=== PATIENT | female | born 1985 ===

== ENCOUNTER 2024-08-02 14:15 | Outpatient (AMB) | payer SELFPAY ==
--- NOTE | 2024-08-02 14:29 | HO.SPINEOV ---
Vital Signs 08/02/24 14:30 Height 5 ft 6 in Weight 400 lb 2 oz BMI 64.6 Intake Visit Reasons: Low back pain Intake Note: Ms. Mcbride is here today c/o Low back pain difficulty walking. Red Lead Burner Required: No Physical Exam Vital Signs: BMI result Body Mass Index 64.6 Assessment & Plan Assessment & Plan (1) Synovial cyst of lumbar spine: Code(s): M71.38 - Other bursal cyst, other site Category: Medical (2) Lumbar stenosis with neurogenic claudication: Code(s): M48.062 - Spinal stenosis, lumbar region with neurogenic claudication Category: Medical (3) Acquired spondylolisthesis of lumbosacral region: Code(s): M43.17 - Spondylolisthesis, lumbosacral region Category: Medical Plan DearColleague on 08/02/2024 I saw for a 2nd opinion Daphne Mcbride with a chief complaint of severe low back pain radiating down predominantly her left leg. HPI: this 39-year-old female developed symptoms of back pain and bilateral leg pain with the left side is more affected than the right side in 2022. Since then her symptoms have progressed to a situation where she is hardly able to walk or stand anymore due to the back pain and bilateral leg symptoms. imaging reviewed a large synovial cyst L3-4 causing left L4 nerve root compression and central stenosis. In addition, hyperintensity of the predominantly left L4-5 facet joint was seen as a sign of instability. X-rays confirmed instability with a spondylolisthesis at the L3-4 level. initially, it was tried to puncture the cyst, which gave her only temporary relief. She has visited many surgeons but it seems that they denied her surgery due to her morbidly obesity. The symptoms are debilitating. 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 She comes to see to explore if a minimally invasive technique is available to address her symptoms. She can not take weight reduction medications due to Crohn's disease for which he takes in 1 time infusion with immunosuppressant every 7 weeks. The following conservative treatment options were tried without success antiinflammatories, tylenol, physician guided home exercise plan, cortisone shots PMH: Anxiety, obesity, bronchitis. Medications: Remicade, naproxen, vitamin-D and calcium, pantoprazole, gabapentin 600 mg 3 times a day, Lexapro, tramadol p.r.n., trazodone Allergies: codeine Social history: lives with a partner. Nonsmoker. Physical Exam: Pleasant female. Height 5 ft 6, weight 400 lb. On exam, this pain on palpation of the lumbar spine. Flexion-extension is painful. Straight leg raise produces pain down her left leg. Motor and sensory exam is intact. Radiological Studies: MRI done at [facility] on 05/13/2023 shows a large synovial cyst L3-4 causing left L4 nerve root compression and central stenosis. In addition, hyperintensity of the predominantly left L4-5 facet joint was seen as a sign of instability. X-rays confirmed instability with a spondylolisthesis at the L3-4 level. Impression/Plan: This patient is suffering from severe low back pain and neurogenic claudication due to L3-4 instability with the formation of a left synovial cyst. I propose to do an oblique lumbar interbody fusion L3-4 to reduce the spondylolisthesis and to indirectly decompress the spinal canal and reduce the size of the cyst. An alternative treatment would be to do a trans Kambin fusion L3-4 if I can not perform the oblique lumbar interbody fusion due to for example too many adhesions from the bowel was from her Crohn's disease. To plan for the surgery the following requirements are needed. 1st, I would like to repeat the MRI of the lumbar spine to make sure that the abnormalities are still present. Secondly, an approval for surgery is needed by her out of state insurance. The oblique lumbar interbody fusion has the following CPT codes: 32690, 35308, 75370, 66721, 49544 ( The transkambin fusion would add 61780 to the other codes). if approved, then we will schedule surgical date three weeks following her IV infusion. Finally, we will do a trial with x-rays before we put her to sleep for the procedure to make sure that fluoroscopy is able to penetrate sufficiently to show the anatomy. Thank you for allowing me to participate in your patients care. total time spent was 50 minutes in counseling ,coordination of plan, personal review of imaging, surgical decision making and subsequent plan Tayo Galindo MD, PhD Spine Fellowship Trained Neurosurgeon Director, [facility] Orders: Orders MR lumbar spine wo con Today M43.17 - Spondylolisthesis, lumbosacral region, M48.062 - Spinal stenosis, lumbar region with neurogenic claudication, M71.38 - Other bursal cyst, other site Coding Level of Care Code New Pt Level 4 (51604) Diagnoses Synovial cyst of lumbar spine M71.38 Lumbar stenosis with neurogenic claudication M48.062 Acquired spondylolisthesis of lumbosacral region M43.17
[2024-08-02 14:30] VITALS: BMI 64.6
--- OUTSIDE RECORDS SUMMARY | 2024-08-02 16:26 | XMS_ITS | Patient Health Record ---
Author Organization [facility] Rajinder ramirez Billing Info Address [address] [place] [address] Care Team Providers Care Shorts Sifter Name Role Phone Vicenta Infante Primary Care Provider MAGGIE Costa [phone] Allergies Allergen (clinical drug ingredient) Drug/Non Drug Allergy documented on EMR Reaction Allergy Type Onset Date Status codeine Codeine chest pain Drug Allergy Active Reason For Referral No Information Medications Medication SIG (Take, Route, Frequency, Duration) Notes Start Date End Date Status Naproxen Sodium 550 MG Oral for 30 Days Active Oxycodone-Acetaminophen 5-325 MG TAKE 1 TABLET BY MOUTH EVERY 6 HOURS FOR 5 DAYS NEEDED Oral for 5 days Active Alprazolam 1 MG Oral for 15 Days Active Escitalopram Oxalate 20 MG Oral for 90 Days Active Albuterol Sulfate HFA 108 (90 Base) MCG/ACT 1 puff as needed Inhalation every 4 hrs Active Gabapentin 600 MG 1 tablet Oral TID fo r 30 days Active Loratadine 10 MG 1 tablet Orally Once a day Active Cholecalciferol 50 MCG (2000 UT) 1 tablet Orally Once a day Active Remicade 100 MG as directed Intravenous Active Clobetasol Propionate 0.05 % External for 15 Days Active Tizanidine HCl 4 MG Oral for 20 Days Active Trazodone HCl 50 MG Oral for 30 Days Active Social History Tobacco Use: Social History Observation Description Date Details (start date - stop date) Never Smoker NA - NA Tobacco Status: Question Answer Notes Patient is a never smoker Vital Signs Heart Rate 100 /min 10/12/2023 Temperature 97.5 degrees Fahrenheit 10/12/2023 Blood pressure diastolic 88 mm Hg 10/12/2023 Oximetry 97 10/12/2023 Height 66 in 10/12/2023 Blood pressure systolic 146 mm Hg 10/12/2023 Encounters Encounter Location Date Provider Diagnosis [id number] [facility] [address] [place], [place] [id number] 10/12/2023 MAGGIE PALLATRONI Lumbar radicular pain M54.16 Assessments Encounter Date Diagnosis (ICD Code) Assessment Notes Treatment Notes Treatment Clinical Notes Section Notes 10/12/2023 Lumbar radicular pain (ICD-10 - M54.16) This is a very n ice 38-year-old woman with a very subtle spondylolisthesis that you actually see better on her flexion-extension films at L3-4 with a left-sided synovial cyst. Were you to operate on this she would need to be fused. She has instability already that is what has caused the cyst. Doing an L3-4 decompression and fusion on this woman at this point with these fairly subtle findings would likely fail. It would be high risk due to her size she is obese. It would be high risk down the road given her young age most likely resulting in adjacent segment disease for the remainder of her life leading to other problems and most likely more surgery. I told her today in no uncertain terms that her back is like this most likely because of her weight. I think would be in her best interests to find medical help for weight loss: That will provide her the best chance of dealing with this without surgery as surgery is risky and will produce equivocal results in the short term probably negative results in the senior care. I told her that the reason this is happening is because she is caring too much weight on her frame, our bodies were never meant to handle this much weight and that is certainly a major component to why her back is breaking down early. I have instructed her to consider what I have told her. In the interim she can follow up with Dr. Stiles for further pain management. Plan Of Treatment Pending Test Test Name Order Date NE- ELECTROMYOGRAM (EMG) (MTOE) () (PRHP -EMG) 05/17/2023 XR- LUMBAR SPINE BENDING ONLY (07283) (P RHP-SPLUMBBO) 05/17/2023 Insurance Providers Payer Name Payer Address Payer Phone Subscriber Number Group Number Insured Name Patient Relationship to Insured Coverage Start Date Coverage End Date [facility] [employer] [address]Z[place] [address] [place], [place] [id number] Reed, Daphne Self - patient is the insured 3 Medical (General) History Medical History History ICD Code Crohn's disease Psoriasis Wheezing Generalized anxiety disorder Asthma - mild persistent Neck pain limbal/vernal keratoconjunctivitis Restricted Airway Disease Surgical History Surgery Date(Month/Year) tonsillectomy and adenoidectomy
--- OUTSIDE RECORDS SUMMARY | 2024-08-02 16:26 | XMS_ITS ---
Author Organization [facility] Address [address] [place] [address] Care Team Providers Care Manuscript Editor Name Role Phone Vicenta Hutchnison Primary Care Provider REASON FOR VISIT RE:RE:out of network referral [facility] Encounters Encounter Location Date Provider [facility] [address] [place] [address] 07/03/2024 Vicenta Hutchinson Plan Of Treatment No Information Progress Notes * Guero MCBRIDEIrineoOB:1985 ( 39 yo F)Acc No.[id number]:07/03/2024 Patient:?Daphne MCBRIDE :1985???Age:39 Y???Sex:Female Address:[address] [place] [address] * true * Date:? Generated for Jacques avina/Sarmad/eTransmitting on:?08/02/2024 04:26 PM EST
--- OUTSIDE RECORDS SUMMARY | 2024-08-02 16:26 | XMS_ITS | Encounter Summary ---
Author Organization [facility] Address [phone] Count includes the [facility] [place] [address] Care Team Providers Care Regional Owner Operator Truck Driver Name Role Phone Vicenta Hutchinson MEDICAL HOSPITAL SALES Primary Care Provider [phone] Vicenta Hutchinson MEDICAL HOSPITAL SALES Primary Care Provider [phone] Encounter Details Date Type Department Care Team (Late st Contact Info) Description 03/16/2018 Procedure Pass [facility] MR Imaging, Felix [address] [place] [address] Social History Tobacco Use Types Packs/Day Years Used Date Smoking Tobacco: Never Smokeless Tobacco: Never Alcohol Use Standard Drinks/Week Comments Yes 0 (1 standard drink = 0.6 oz pur e alcohol) Sex and Gender Information Value Date Recorded Sex Assigned at Not on file Gender Identity Not on file Sexual Orientation Not on file documented as of this encounter Plan of Treatment Upcoming Encounters Date Type Department Care Team (Late st Contact Info) Description 09/16/2024 8:40 AM EDT Telemedicine [facility] Crohns and Colitis [address] [place] [address] Samuel Bower MD, MPH [address] [place] [id number] [email or web address] Scheduled Procedures Name Priority Associated Diagnoses Date/Ti nh COLONOSCOPY Crohn's disease of small and large intestines with complication ESOPHAGOGASTRODUODENOSCOPY Crohn's disease of small and large intestines with complication documented as of this encounter Visit Diagnoses Not on filedocumented in this encounter Care Teams Regional Owner Operator Truck Driver Relationship Specialty Start Date End Date Vicenta Hutchinson NP [address] [address] [email or web address] PCP - General Unknown Provider Specialty 02/08/18 08/22/21 Vicenta Hutchinson NP [address] [place] [address] [email or web address] PCP - General Unknown Provider Specialty 08/23/21 documented as of this encounter Additional Source Comments The information contained in this document represents components of the legal health record. It is not the complete legal health record.[facility]
--- OUTSIDE RECORDS SUMMARY | 2024-08-02 16:26 | XMS_ITS ---
Author Organization [facility] Raj[facility] ram[facility] Billing Info Address [address] [place] [address] Care Team Providers Care Scale Balancer Name Role Phone Vicenta Infante Primary Care Provider VIOLETA Bustillo Unavailable [phone] REASON FOR VISIT WOULD LIKE CALL BACK Encounters Encounter Location Date Provider Diagnosis [id number] [facility] [address] [facility] [address] [place], [place] [id number] 06/27/2023 VIOLETA WHITLOCK Plan Of Treatment No Information Progress Notes * Guero MCBRIDEIrineoOB:1985 ( 38 yo F)Acc No.[id number]:06/27/2023 Patient:?Daphne MCBRIDE :1985???Age:38 Y???Sex:Female Address:[address] [place] [address], [phone] * true * Date:? Generated for Jacques avina/Sarmad/eTransmitting on:?08/02/2024 04:26 PM EST
--- OUTSIDE RECORDS SUMMARY | 2024-08-02 16:26 | XMS_ITS | Encounter Summary ---
Author Organization [facility] Address [phone] [place] [address] Care Team Providers Care Shrinker Name Role Phone Vicenta Hutchinson SCRAPER OPERATOR Primary Care Provider [phone] Encounter Details Date Type Department Care Team (Late Contact Info) Description 05/23/2024 Telephone [facility] Outside [address] [place] [address] Salomón Kim MD [address] [place] [address] [email or web address] Social History Tobacco Use Types Packs/Day Years Used Date Smoking Tobacco: Never Smokeless Tobacco: Never Alcohol Use Standard Drinks/Week Comments Yes 1 (1 standard drink = 0.6 oz pur e alcohol) Education Answer Date Recorded Are you interested in more education? Not on andres e 09/29/2022 Are you concerned about learning? Not on file 09/29/2022 No 09/29/2022 No 09/29/2022 Digital Access Answer Date Recorded No 10/28/2022 No 10/28/2022 Reliable internet access at home? Not on file 10/28/2022 Device with a working camera? Not on file Sex and Gender Information Value Date Recorded Sex Assigned at Not on file Gender Identity Not on file Sexual Orientation Not on file documented as of this encounter Plan of Treatment Upcoming Encounters Date Type Department Care Team (Late Contact Info) Description 09/16/2024 8:40 AM EDT Telemedicine [facility] Crohns and Colitis [address] [place] [address] Samuel Bower MD, MPH [address] [place] [address] MARY [email or web address] Scheduled Procedures Name Priority Associated Diagnoses Date/Ti me COLONOSCOPY Crohn's disease of small and large intestines with complication ESOPHAGOGASTRODUODENOSCOPY Crohn's disease of small and large intestines with complication documented as of this encounter Visit Diagnoses Not on filedocumented in this encounter Additional Health Concerns Assessment Noted Time PHQ-2 Depression Total Score: 0 09/08/19 23 2:01 PM EDT documented as of this encounter Care Teams Shrinker Relationship Specialty Start Date End Date Vicenta Hutchinson NP [address] [place] [address] [email or web address] PCP - General Unknown Provider Specialty 08/23/21 documented as of this encounter Additional Source Comments The information contained in this document represents components of the legal health record. It is not the complete legal health record.[facility]
--- OUTSIDE RECORDS SUMMARY | 2024-08-02 16:26 | XMS_ITS | Encounter Summary ---
Author Organization [facility] Address [phone] [facility] [place] [address] Care Team Providers Care Probe Operator Name Role Phone Vicenta Hutchinson SPINE SUPERVISOR Primary Care Provider [phone] Encounter Details Date Type Department Care Team (Late Contact Info) Description 06/27/2023 Telephone [facility] Specialties [address] [place] [address] Samuel Bower MD, MPH [address] [place] [address] [email or web address] Social History Tobacco Use Types Packs/Day Years [...] Info) Description 09/16/2024 8:40 AM EDT Telemedicine [facility] Crohns and Colitis [address] [place] [address] Samuel Bower MD, MPH [address] [place] [address] MARY [email or web address] Scheduled Procedures Name Priority Associated Diagnoses Date/Ti al COLONOSCOPY Crohn's disease of small and large intestines with complication ESOPHAGOGASTRODUODENOSCOPY Crohn's disease of small and large intestines with complication documented as of this encounter Visit Diagnoses Not on filedocumented in this encounter Additional Health Concerns Assessment Noted Time PHQ-2 Depression Total Score: 0 09/08/19 23 2:01 PM EDT documented as of this encounter Care Teams Probe Operator Relationship Specialty Start Date End Date Vicenta Hutchinson NP [address] [place] [address] [email or web address] PCP - General Unknown Provider Specialty 08/23/21 documented as of this encounter Additional Source Comments The information contained in this document represents components of the legal health record. It is not the complete legal health record.[facility]
--- OUTSIDE RECORDS SUMMARY | 2024-08-02 16:26 | XMS_ITS | Encounter Summary ---
Author Organization [facility] Address [phone] [facility] [address] [place] [address] Care Team Providers Care Cytotechnologist/Cytology Supervisor Name Role Phone Vicenta Hutchinson LENS FINISHER Primary Care Provider [phone] Vicenta Hutchinson LENS FINISHER Primary Care Provider [phone] Encounter Details Date Type Department Care Team (Late st Contact Info) Description 03/16/2018 Procedure Pass [facility] MR Imaging, Felix [address] [place] [address] Social History Tobacco Use Types Packs/Day Years [...] Info) Description 09/16/2024 8:40 AM EDT Telemedicine [facility] Crohns and Colitis [address] [place] [address] Samuel Bower MD, MPH [address] [place] [address] [email or web address] Scheduled Procedures Name Priority Associated Diagnoses Date/Ti fl COLONOSCOPY Crohn's disease of small and large intestines with complication ESOPHAGOGASTRODUODENOSCOPY Crohn's disease of small and large intestines with complication documented as of this encounter Visit Diagnoses Not on filedocumented in this encounter Care Teams Cytotechnologist/Cytology Supervisor Relationship Specialty Start Date End Date Vicenta Hutchinson NP [address] [place] [address] [email or web address] PCP - General Unknown Provider Specialty 02/08/18 08/22/21 Vicenta Hutchinson NP [address] [place] [address] [email or web address] PCP - General Unknown Provider Specialty 08/23/21 documented as of this encounter Additional Source Comments The information contained in this document represents components of the legal health record. It is not the complete legal health record.[facility]
--- OUTSIDE RECORDS SUMMARY | 2024-08-02 16:26 | XMS_ITS ---
Author Organization [facility] Address [address] [place] [address] Care Team Providers Care Auditor/Quality Name Role Phone Vicenta Hutchinson Primary Care Provider [phone] REASON FOR VISIT Clinical advice, not feeling well acute GI vs side effect from stopping prednsione Encounters Encounter Location Date Provider [facility] [address] [place] [address] 07/09/2024 Vicenta Hutchinson Plan Of Treatment No Information Progress Notes * Oleg MCBRIDEOB:1985 ( 39 yo F)Acc No.[id number]:07/09/2024 Patient:?Daphne MCBRIDE :1985???Age:39 Y???Sex:Female Address:[address] [place] [phone] * true * Date:? Generated for Jacques avina/Sarmad/eTransmitting on:?08/02/2024 04:26 PM EST
--- OUTSIDE RECORDS SUMMARY | 2024-08-02 16:26 | XMS_ITS | Encounter Summary ---
Author Organization [facility] Address [phone] [facility] [place] [address] Care Team Providers Care Donation Specialist Name Role Phone Vicenta Hutchinson FEED ADVISER Primary Care Provider [phone] Encounter Details Date Type Department Care Team (Latest Contact Info) Description 07/21/2023 Transcribe Orders [facility] [address] [place] [address] Josephine [email or web address] Crohn's disease of both small and large intestine without complication (Primary Dx) Social History Tobacco Use Types Packs/Day Years [...] Info) Description 09/16/2024 8:40 AM EDT Telemedicine [facility] Crohns and Colitis [address] [place] [address] Samuel Bower MD, MPH [address] [place] [address] MARY [email or web address] Scheduled Orders Name Type Priority Associated Diagnoses Orde r Schedule CBC and differential Lab Routine Crohn's disease of both small and large intestine without complication Expected: 07/21/2023, Expires: 07/21/2024 Iron and iron binding capacity Lab Routine Crohn's disease of both small and large intestine without complication Expected: 07/21/2023, Expires: 07/21/2024 Ferritin Lab Routine Crohn's disease of both small and large intestine without complication Expected: 07/21/2023, Expires: 07/21/2024 Infliximab/infliximab antibody Lab Routine Crohn's disease of both small and large intestine without complication Expected: 07/21/2023, Expires: 07/21/2024 Basic metabolic panel Lab Routine Crohn's disease of both small and large intestine without complication Expected: 07/21/2023, Expires: 07/21/2024 LFTs (hepatic panel) Lab Routine Crohn's disease of both small and large intestine without complication Expected: 07/21/2023, Expires: 07/21/2024 25-OH vitamin D Lab Routine Crohn's disease of both small and large intestine without complication Expected: 07/21/2023, Expires: 07/21/2024 C-Reactive Protein Lab Routine Crohn's disease of both small and large intestine without complication Expected: 07/21/2023, Expires: 07/21/2024 Calprotectin, stool Lab Routine Crohn's disease of both small and large intestine without complication Expected: 07/21/2023, Expires: 07/21/2024 Scheduled Procedures Name Priority Associated Diagnoses Date/Ti me COLONOSCOPY Crohn's disease of small and large intestines with complication ESOPHAGOGASTRODUODENOSCOPY Crohn's disease of small and large intestines with complication documented as of this encounter Visit Diagnoses Diagnosis Crohn's disease of both small and large intestine without complication- Primary documented in this encounter Additional Health Concerns Assessment Noted Time PHQ-2 Depression Total Score: 0 09/08/19 23 2:01 PM EDT documented as of this encounter Care Teams Donation Specialist Relationship Specialty Start Date End Date Vicenta Hutchinson NP [address] [place] [address] [email or web address] PCP - General Unknown Provider Specialty 08/23/21 documented as of this encounter Additional Source Comments The information contained in this document represents components of the legal health record. It is not the complete legal health record.[facility]
--- OUTSIDE RECORDS SUMMARY | 2024-08-02 16:26 | XMS_ITS | Clinical Summary ---
Author Organization [facility] Address [phone] [facility] [place] [address] Care Team Providers Care Exhaust Equipment Operator Name Role Phone JasperVicenta bennett Pascual TILLER WORKER Primary Care Provider [phone] Allergies Active Allergy Reactions Criticality Noted Date Comments Codeine Shortness Of Breath High 03/16/2018 Medications Medication Sig Dispensed Refills Start Date End Date Status escitalopram oxalate (LEXAPRO) 10 MG tablet Take 15 mg by mouth daily. Active LORazepam (ATIVAN) 1 MG tablet Take 1 mg by mouth daily as needed for anxiety. Active loratadine (CLARITIN) 10 mg tablet Take 10 mg by mouth daily as needed for allergies. Active fluticasone propionate (FLONASE) 50 mcg/actuation nasal spray 2 sprays by Nasal route daily. Active ipratropium/albutero l sulfate (ID-IPRATROPIUM BROMIDE/ALBUTEROL SULFATE) 0.5-2.5 mg/3 mL nebulizer solution Take 3 mL by nebulization every 6 (six) hours as needed. Active albuterol 90 mcg/actuation inhaler Inhale 2 puffs into the lungs every 4 (four) hours as needed for wheezing. Active fluticasone/salmeter ol (ADVAIR DISKUS INHL) Inhale 1 puff into the lungs daily as needed. Active inFLIXimab (REMICADE) 100 mg injectionIndications :Crohn's disease of small and large intestines with complication Inject 145 mL (1,450 mg total) into the vein once every 6 weeks. Premeds of claritin 10mg PO and tylenol 650mg PO given 15-30min prior to infusion Labs drawn: CBC, CMP, CRP 145 mL 06/19/2018 Active clobetasol (TEMOVATE) 0.05 % cream Apply topically daily. 03/24/2022 Active clobetasol (TEMOVATE) 0.05 % ointment 04/14/2022 Active gabapentin (NEURONTIN) 100 MG capsule take 1 to 3 capsules by mouth at bedtime 02/21/2022 Active mupirocin (BACTROBAN) 2 % ointment 04/14/2022 Active naproxen sodium (ANAPROX) 550 MG tablet 04/18/2022 Active tiZANidine (ZANAFLEX) 4 MG capsule 04/18/2022 Active prednisoLONE acetate (PRED FORTE) 1 % ophthalmic suspension Place 1 drop into each eye daily as needed. Every other day Active Active Problems Problem Noted Date Diagnosed Date Bilateral low back pain 06/12/2023 Lumbar radicular pain 06/12/2023 Anxiety with depression 04/21/2022 Vitamin D deficiency 09/06/2021 Chronic fatigue 09/06/2021 Asthma 05/18/2018 Psychiatric disorder 05/18/2018 Obesity 05/18/2018 Crohn's disease of small and large intestines with complication 03/16/2018 Encounters Date Type Department Care Team Description 05/24/2024 Telephone [facility] [place] [facility] [address] [place] [address] Salomón Kim MD spine team referral (Sent to spine team for review/) 05/24/2024 Transcribe Orders [facility] [address] [place] [address] Vicenta Hutchinson NP Radicular low back pain (Primary Dx); Synovial cyst of lumbar spine 05/23/2024 Telephone [facility] [address] [place] [address] Salomón Kim MD from Last 3 Months Family History Medical History Relation Comments Rheumatoid arthritis Maternal Grandfather Relation Status Comments Maternal Grandfather Social History Tobacco Use Types Packs/Day Years Used Date Smoking Tobacco: Never Smokeless Tobacco: Never Tobacco Cessation:Counseling Given: Not Answered Alcohol Use Standard Drinks/Week Comments Yes 1 [...] on file Sexual Orientation Not on file Last Filed Vital Signs Vital Sign Reading Time Taken Comments Blood Pressure 145/94 02/13/2024 12:40 PM EDT Pulse 65 02/13/2024 12:40 PM EDT Temperature 36.5 ??C (97.7 ??F) 05/16/2019 2:00 PM ES T Respiratory Rate 18 05/16/2019 4:25 PM EST Oxygen Saturation 99% 02/13/2024 12:40 PM EDT Inhaled Oxygen Concentration - - Weight 161.9 kg (357 lb) 03/20/2024 11:17 AM EDT Height 170.2 cm (5' 7 ) 03/20/2024 11:17 AM EDT Body Mass Index 55.91 03/20/2024 11:17 AM EDT Plan of Treatment Upcoming Encounters Date Type Department Care Team (Late st Contact Info) Description 09/16/2024 8:40 AM EDT Telemedicine [facility] Crohns and Colitis [address] [place] [id number] Samuel Bower MD, MPH [address] [place] [phone] [email or web address] Scheduled Procedures Name Priority Associated Diagnoses Date/Ti me COLONOSCOPY Crohn's disease of small and large intestines with complication ESOPHAGOGASTRODUODENOSCOPY Crohn's disease of small and large intestines with complication Health Maintenance Due Date Last Done Comments Adult Td,Tdap Booster 1986 COVID-19 VACCINE (#1) 1991 HIV ONE-TIME SCREENING (18-6 5 YEARS) 2004 HEPATITIS B VACCINES (1 of 3 - 19+ 3-dose series) 2005 PNEUMOCOCCAL VACCINES (0-49 years) (1 of 2 - PCV) 2005 PAP SMEAR 2007 SCREENING FOR DIABETES 05/16/2022 05/16/2019 DEPRESSION SCREENING 09/08/2023 09/07/2022 INFLUENZA VACCINE (#1) 2024 HEPATITIS B SCREENING Completed 03/16/2018 HEPATITIS C SCREENING Completed 03/16/2018 SMOKING STATUS SCREENING (On ce After 26 Yrs) Completed 03/20/2024 HEPATITIS A VACCINES Aged Out No long er eligible based on patient's age to complete this topic HIB VACCINES Aged Out No longer eligi ble based on patient's age to complete this topic MENINGOCOCCAL VACCINES (ACWY) Aged Out No longer eligible based on patient's age to complete this topic Medical Devices Not on file Procedures Procedure Name Priority Date/Time Associated Diagnosis Comments OUTSIDE LAB 05/30/2024 HEPATITIS C ANTIBODY, QUALITATIVE Routine 03/16/2018 5:34 PM EDT Crohn's disease of small and large intestines with complication HEPATITIS B SURFACE ANTIGEN Routine 03/16/2018 5:34 PM EDT Crohn's disease of small and large intestines with complication from Last 3 Months or Most Recently Relevant to Health Maintenance Results * Outside Lab (05/30/2024) Scanning Interface Provider LAB BLOOD OR DERABLES * Hepatitis C antibody, qualitative (03/16/2018 5:34 PM EDT) HCV Nonreactive Nonreactive [facility] 03/16/2018 5:34 PM EDT 03/16/2018 5:50 PM EDT Samuel Bower MD, MPH LAB BL OOD ORDERABLES [facility] [address] [place] [id number] * Hepatitis B surface antigen (03/16/2018 5:34 PM EDT) HBV SURFACE ANTIGEN Nonreactive Nonreactive [facility] 03/16/2018 5:34 PM EDT 03/16/2018 5:50 PM EDT Samuel Bower MD, MPH LAB BL OOD ORDERABLES [facility] [address] [place] [address] from Last 3 Months or Most Recently Relevant to Health Maintenance Care Teams Exhaust Equipment Operator Relationship Specialty Start Date End Date Vicenta Hutchinson NP [address] [place] [address] [email or web address] PCP - General Unknown Provider Specialty 08/23/21 Additional Source Comments The information contained in this document represents components of the legal health record. It is not the complete legal health record.[facility]
--- OUTSIDE RECORDS SUMMARY | 2024-08-02 16:27 | XMS_ITS | Clinical Summary ---
Author Organization [facility] Address [address] [place] [address] Care Team Providers Care Director Check Name Role Phone Unavailable Primary Care Provider Unavailabl e Social History Tobacco Use Types Packs/Day Years Used Date Smoking Tobacco: Never Assessed Comments Unknown Sex and Gender Information Value Date Recorded Sex Assigned at Not on file Legal Sex Female 5:57 PM EDT Gender Identity Not on file Sexual Orientation Not on file Plan of Treatment Health Maintenance Due Date Last Done Comments Depression Screening 1998 HIV Screening with Documented Verbal Consent 2001 Hepatitis C Screening 2004 Hepatitis B Vaccines (1 of 3 - 19+ 3-dose series) 2005 Cervical Cancer Screening 2007 TDAP/TD Vaccine 18+ 05/11/2014 05/11/2004, 08/22/2001 Lipid Screening 2021 COVID-19 Vaccine (3 2023-25 season) 2024 03/14/2021, 02/11/2021 Influenza Vaccine (#1) 2024 Pneumococcal: Peds (0-5y) OR At-Risk Patient (6-49y) Aged Out No longer eligib le based on patient's age to complete this topic Insurance [employer]
--- OUTSIDE RECORDS SUMMARY | 2024-08-02 16:27 | XMS_ITS ---
Author Organization [facility] ramirez Billing Info Address [address] [place] [address] Care Team Providers Care Tube Worker Name Role Phone Vicenta Infante Primary Care Provider MAGGIE Costa [phone] Allergies Allergen (clinical drug ingredient) Drug/Non Drug Allergy documented on EMR Reaction Allergy Type Onset Date Status codeine Codeine chest pain Drug Allergy Active REASON FOR VISIT synovial cyst Medications Medication SIG (Take, Route, Frequency, Duration) Notes Start Date End Date Status Albuterol Sulfate HFA 108 (90 Base) MCG/ACT 1 puff as needed Inhalation every 4 hrs Active Loratadine 10 MG 1 tablet Orally Once a day Active Naproxen Sodium 550 MG Oral for 30 Days Active Oxycodone-Acetaminophen 5-325 MG TAKE 1 TABLET BY MOUTH EVERY 6 HOURS FOR 5 DAYS NEEDED Oral for 5 days Active Remicade 100 MG as directed Intravenous Active Tizanidine HCl 4 MG Oral for 20 Days Active Trazodone HCl 50 MG Oral for 30 Days Active Alprazolam 1 MG Oral for 15 Days Active Escitalopram Oxalate 20 MG Oral for 90 Days Active Gabapentin 600 MG 1 tablet Oral TID fo r 30 days Active Cholecalciferol 50 MCG (1999) 1 tablet Orally Once a day Active Clobetasol Propionate 0.05 % External for 15 Days Active Social History Tobacco Use: Social History Observation Description Date Details (start date - stop date) Never Smoker NA - NA Tobacco Status: Question Answer Notes Patient is a never smoker Vital Signs Height 66 in 10/12/2023 Blood pressure systolic 146 mm Hg 10/12/19 24 Blood pressure diastolic 88 mm Hg 024 Temperature 97.5 degrees Fahrenheit 10/12/19 24 Heart Rate 100 /min 10/12/2023 Oximetry 97 10/12/2023 Encounters Encounter Location Date Provider Diagnosis [id number] [facility] [address] [facility] [address] [place], [place] [id number] 10/12/2023 MAGGIE VALENTIN Lumbar radicular pain M54.16 Assessments Encounter Date [...] 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 I told her that the reason this [...] for further pain management. Plan Of Treatment Next Appt Details Follow Up: prn, Reason: Progress Notes * Guero MCBRIDEhelDOB:1985 ( 38 yo F)Acc No.[id number]:10/12/2023 PROGRESS NOTE Patient:Daphne MENDOZA Provider:?MAGGIE VALENTIN MD :1985???Age:38 Y???Sex:Female D ate:10/12/2023 ?CHN#:[id number] Address:[address] [place], [place] [address], [phone] Pcp:DANUTA Snow Subjective: * Chief Complaints: * ???Synovial cyst * HPI: ???Patient History:?Daphne is a 38-year-old woman with back pain who is here to see me for a 2nd opinion from Dr. Stiles. She had recently seen Dr. García. From that visit this was her history of present illness: This is a 38-year-old female who is presenting for evaluation for approximately a 6 month history?predominantly axial lower back pain with bilateral pain down the lower extremities along the posterior aspect of the thigh and calf.? She has done extensive physical therapy as well as chiropractor and acupuncture without any significant improvement in her symptoms.? She does not endorse any numbness or paresthesias in the lower extremities.? Her symptoms seem predominantly nondermatomal in distribution and does not endorse any symptoms that would be consistent with a left-sided L4 radiculopathy at this time. His opinion was as follows: This is a 38-year-old female who is presenting for evaluation of approximately 6 month history of lower back pain with bilateral lower extremity pain that does not necessarily 6 appear radicular in nature. MRI of the lumbar spine shows degenerative changes that are relatively mild apart from a left-sided L3-4 synovial cyst resulting in severe lateral recess stenosis and potential compression of the traversing nerve root. However she does not endorse a L4 radiculopathy at this time, and this would not explain the severe axial back pain at that makes a predominant portion of her complaints today. She is scheduled to be evaluated by pain management in the coming weeks. She would end up asking for another opinion.? I would see her today. Basically as outlined above she has severe low back pain with an element that occasionally does go into the left leg.? This makes it very difficult for her to function. Review of her imaging studies shows an L3-4 spondylolisthesis with a left-sided synovial cyst. This had been ruptured in the interim by Dr. Lau which did not make a major difference. She is here for my opinion today. * Medical History:?? * Surgical History:?tonsillect jose rafael and adenoidectomy * Hospitalization/Major Diagno stic Procedure:? * Family History:?Mother: paige gloria?Father: alive.?Non-Contributory.? * Social History:?Alcohol Use?Patient?uses alcohol 1 drink every couple months ???Tobacco Status?Patient is?a never smoker ???Marital Status: Partner. ???Illicit Drug Use?Do you use marijuana??Yes ???Personal Information: Right hand dominant. * Medications:?TakingAlbuterol Sulfate HFA 108 (90 Base) MCG/ACT Aerosol Solution 1 puff as needed Inhalation every 4 hrs Alprazolam 1 MG Tablet Oral Cholecalciferol 50 MCG (1999 UT) Tablet 1 tablet Orally Once a day Clobetasol Propionate 0.05 % Ointment External Escitalopram Oxalate 20 MG Tablet Oral Gabapentin 600 MG Tablet 1 tablet Oral TID Loratadine 10 MG Tablet 1 tablet Orally Once a day Naproxen Sodium 550 MG Tablet Oral Oxycodone-Acetaminophen 5-325 MG Tablet TAKE 1 TABLET BY MOUTH EVERY 6 HOURS FOR 5 DAYS NEEDED Oral Remicade 100 MG Solution Reconstituted as directed Intravenous Tizanidine HCl 4 MG Capsule Oral Trazodone HCl 50 MG Tablet Oral Taking Albuterol Sulfate HFA 108 (90 Base) MCG/ACT Aerosol Solution 1 puff as needed Inhalation every 4 hrs Taking Alprazolam 1 MG Tablet Oral Taking Cholecalciferol 50 MCG (2000 UT) Tablet 1 tablet Orally Once a day Taking Clobetasol Propionate 0.05 % Ointment External Taking Escitalopram Oxalate 20 MG Tablet Oral Taking Gabapentin 600 MG Tablet 1 tablet Oral TID Taking Loratadine 10 MG Tablet 1 tablet Orally Once a day Taking Naproxen Sodium 550 MG Tablet Oral Taking Oxycodone-Acetaminophen 5-325 MG Tablet TAKE 1 TABLET BY MOUTH EVERY 6 HOURS FOR 5 DAYS NEEDED Oral Taking Remicade 100 MG Solution Reconstituted as directed Intravenous Taking Tizanidine HCl 4 MG Capsule Oral Taking Trazodone HCl 50 MG Tablet Oral DiscontinuedBuPROPion HCl ER (XL) 300 MG Tablet Extended Release 24 Hour Oral Fluticasone Propionate 50 MCG/ACT Suspension instill 1 spray into each nostril once daily Nasal PredniSONE 10 MG Tablet 6 tabs tapered down Orally Once a day Wixela Inhub 100-50 MCG/ACT Aerosol Powder Breath Activated 1 puff Inhalation Twice a day Medication List reviewed and reconciled with the patientDiscontinued BuPROPion HCl ER (XL) 300 MG Tablet Extended Release 24 Hour Oral Discontinued Fluticasone Propionate 50 MCG/ACT Suspension instill 1 spray into each nostril once daily Nasal Discontinued PredniSONE 10 MG Tablet 6 tabs tapered down Orally Once a day Discontinued Wixela Inhub 100-50 MCG/ACT Aerosol Powder Breath Activated 1 puff Inhalation Twice a day Medication List reviewed and reconciled with the patient * Allergies:?Codeine: chest antonietta mendoza[Allergies Verified] Objective: * Vitals:?Ht: 66 in, Ht-cm: 16 7.64 cm, Wt: Not Taken - Declined by Patient, BP:146/88, Temp:97.5F, HR:100, Oxygen sat %:97. * Examination: ???NEUROSURGERY: ?Constitutional:?pleasant, seemingly appropriate, in no acute distress.? Assessment: * Assessment: 1.?Lumbar radicular pain - M 54.16 (Primary)? 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 I told her that the reason this [...] with Dr. Stiles for further pain management. Plan: * Treatment: * Procedure Codes:? * Preventive Medicine:? ??Quality Measures:?Weight Assessment?Findings:?Patient Refused * Follow Up:?prn * Care Plan Details* * Sign off status: Completed true * Provider:?MAGGIE VALENTIN MD Date:?0 10/12/2023 Generated for Jacques avina/Sarmad/eTransmitting on:?08/02/2024 04:26 PM EST History and Physical Notes * HPI (History of Present Illness) Category Sub-Category Detail Notes Category Not es Patient History Daphne is a 38-year-old woman with back pain who is here to see me for a 2nd opinion from Dr. Stiles. She had recently seen Dr. García. From that visit this was her history of present illness: This is a 38-year-old female who is presenting for evaluation for approximately a 6 month history predominantly axial lower back pain with bilateral pain down the lower extremities along the posterior aspect of the thigh and calf. She has done extensive physical therapy as well as chiropractor and acupuncture without any significant improvement in her symptoms. She does not endorse any numbness or paresthesias in the lower extremities. Her symptoms seem predominantly nondermatomal in distribution and does not endorse any symptoms that would be consistent with a left-sided L4 radiculopathy at this time. His opinion was as follows: This is a 38-year-old female who is presenting for evaluation of approximately 6 month history of lower back pain with bilateral lower extremity pain that does not necessarily 6 appear radicular in nature. MRI of the lumbar spine shows degenerative changes that are relatively mild apart from a left-sided L3-4 synovial cyst resulting in severe lateral recess stenosis and potential compression of the traversing nerve root. However she does not endorse a L4 radiculopathy at this time, and this would not explain the severe axial back pain at that makes a predominant portion of her complaints today. She is scheduled to be evaluated by pain management in the coming weeks. She would end up asking for another opinion. I would see her today. Basically as outlined above she has severe low back pain with an element that occasionally does go into the left leg. This makes it very difficult for her to function. Review of her imaging studies shows an L3-4 spondylolisthesis with a left-sided synovial cyst. This had been ruptured in the interim by Dr. Lau which did not make a major difference. She is here for my opinion today Examination Category Sub-Category Detail Notes Category Not es NEUROSURGERY Constitutional: pleasant, seemin gly appropriate, in no acute distress
--- OUTSIDE RECORDS SUMMARY | 2024-08-02 16:27 | XMS_ITS ---
Author Organization [facility] Rajinder ramirez Billing Info Address [address] [place], [place] [id number] Care Team Providers Care Roll Tender Name Role Phone Vicenta Infante Primary Care Provider VIOLETA Bustillo [phone] Allergies Allergen (clinical drug ingredient) Drug/Non Drug Allergy documented on EMR Reaction Allergy Type Onset Date Status codeine Codeine chest pain Drug Allergy Active Results Component Value Reference Range Notes NE- ELECTROMYOGRAM (EMG) (MT OE) () (PRHP-EMG) (Not yet reviewed by provider) Interpretation: Performing Lab: Notes/Report: REASON FOR VISIT radicular low back pain Medications Medication SIG (Take, Route, Frequency, Duration) Notes Start Date End Date Status Tizanidine HCl 4 MG Oral for 20 Days Active BuPROPion HCl ER (XL) 300 MG Oral for 30 Days Not-Taking Trazodone HCl 50 MG Oral for 30 Days Active Albuterol Sulfate HFA 108 (90 Base) MCG/ACT 1 puff as needed Inhalation every 4 hrs Not-Takin g Alprazolam 1 MG Oral for 15 Days Active Remicade 100 MG as directed Intravenous Active Gabapentin 100 MG Oral for 30 Days Active Loratadine 10 MG 1 tablet Orally Once a day Not-Taking Naproxen Sodium 550 MG Oral for 30 Days Active PredniSONE 10 MG 6 tabs tapered down Orally Once a day 05/17/2023 Active Fluticasone Propionate 50 MCG/ACT instill 1 spray into each nostril once daily Nasal for 30 Days Not-Taking Cholecalciferol 50 MCG (1999) 1 tablet Orally Once a day Active Wixela Inhub 100-50 MCG/ACT 1 puff Inhalation Twice a day Not-Taking Clobetasol Propionate 0.05 % External for 15 Days Active Escitalopram Oxalate 20 MG Oral for 90 Days Active Social History Tobacco Use: Social History Observation Description Date Details (start date - stop date) Never Smoker NA - NA Tobacco Status: Question Answer Notes Patient is a never smoker Vital Signs Height 66 in 05/17/2023 Temperature 97.8 degrees Fahrenheit 05/17/20 23 Heart Rate 92 /min 05/17/2023 Oximetry 97 05/17/2023 Encounters Encounter Location Date Provider Diagnosis [id number] [facility] [address] [place], [place] [id number] 05/17/2023 VIOLETA CHINYERE Lumbar radicular pain M54.16 Assessments Encounter Date Diagnosis (ICD Code) Assessment Notes Treatment Notes Treatment Clinical Notes Section Notes 05/17/2023 Lumbar radicular pain (ICD-10 - M54.16) Will get standing lateral flexion-extension views of the lumbar spine to ensure no dynamic instability that could be contributing to the formation of the synovial cyst as there is increased facet signal at that 3 4 level Given the variability of her lower extremity symptoms will get a EMG/NCV of the bilateral lower extremities to evaluate for a lumbar radiculopathy versus peripheral neuropathy as the source for her lower extremity pain Agree with referral to pain management and advised to keep appointment with Dr. Chopra Will follow-up in 4 weeks to review the results the EMG/NCV and the x-rays and discuss further treatment options This is a 38-year-old female who is [...] by pain management in the coming weeks. 05/17/2023 Other I spent 45 min involved in patient care with greater than 50% of the time involving direct patient care and counseling. This is a 38-year-old female who is [...] by pain management in the coming weeks. Plan Of Treatment Treatment Notes Assessment Notes Lumbar radicular pain Will get standing lateral flexion-extension views of the lumbar spine to ensure no dynamic instability that could be contributing to the formation of the synovial cyst as there is increased facet signal at that 3 4 level Given the variability of her lower extremity symptoms will get a EMG/NCV of the bilateral lower extremities to evaluate for a lumbar radiculopathy versus peripheral neuropathy as the source for her lower extremity pain Agree with referral to pain management and advised to keep appointment with Dr. Chopra Will follow-up in 4 weeks to review the results the EMG/NCV and the x-rays and discuss further treatment options Other I spent 45 min invol anusha in patient care with greater than 50% of the time involving direct patient care and counseling. Pending Test Test Name Order Date NE- ELECTROMYOGRAM (EMG) (MTOE) () (PRHP -EMG) 05/17/2023 XR- LUMBAR SPINE BENDING ONLY (58627) (P RHP-SPLUMBBO) 05/17/2023 Next Appt Details Follow Up: 4 Weeks, Reason: after emg/ncv Progress Notes * Guero MCBRIDEhelDOB:1985 ( 38 yo F)Acc No.[id number]:05/17/2023 PROGRESS NOTE Patient:?Daphne MCBRIDE Provider:?VIOLETA WHITLOCK MD :1985???Age:38 Y???Sex:Female D ate:05/17/2023 ?CHN#:[id number] Address:[address] [place] [address] CINTHIA WATERMAN [id number] Pcp:DANUTA Snow Subjective: * Chief Complaints: * ???Radicular low back pain * HPI: ???Patient History:?This is a 38-year-old female who is presenting [...] a left-sided L4 radiculopathy at this time. * ROS:?Please see the Health History Questionnaire that was completed and reviewed with the patient during this encounter and scanned into the medical record., Negative unless Highlighted or noted in HPI/Assessment. * Medical History:?? * Surgical History:?tonsillect jose rafael and adenoidectomy * Hospitalization/Major Diagno stic Procedure:? * Family History:?Mother: paige mccauley.?Father: alive.? * Social History:?Alcohol Use?Patient?does not use alcohol ???Tobacco Status?Patient is?a never smoker ???Marital Status: Partner. ???Personal Information: Right hand dominant. * Medications:?TakingAlprazola m 1 MG Tablet Oral Cholecalciferol 50 MCG (1999 UT) Tablet 1 tablet Orally Once a day Clobetasol Propionate 0.05 % Ointment External Escitalopram Oxalate 20 MG Tablet Oral Gabapentin 100 MG Capsule Oral Naproxen Sodium 550 MG Tablet Oral PredniSONE 10 MG Tablet 6 tabs tapered down Orally Once a day Remicade 100 MG Solution Reconstituted as directed Intravenous Tizanidine HCl 4 MG Capsule Oral Trazodone HCl 50 MG Tablet Oral Taking Alprazolam 1 MG Tablet Oral Taking Cholecalciferol 50 MCG (1999 UT) Tablet 1 tablet Orally Once a day Taking Clobetasol Propionate 0.05 % Ointment External Taking Escitalopram Oxalate 20 MG Tablet Oral Taking Gabapentin 100 MG Capsule Oral Taking Naproxen Sodium 550 MG Tablet Oral Taking PredniSONE 10 MG Tablet 6 tabs tapered down Orally Once a day Taking Remicade 100 MG Solution Reconstituted as directed Intravenous Taking Tizanidine HCl 4 MG Capsule Oral Taking Trazodone HCl 50 MG Tablet Oral Not-TakingAlbuterol Sulfate HFA 108 (90 Base) MCG/ACT Aerosol Solution 1 puff as needed Inhalation every 4 hrs BuPROPion HCl ER (XL) 300 MG Tablet Extended Release 24 Hour Oral Fluticasone Propionate 50 MCG/ACT Suspension instill 1 spray into each nostril once daily Nasal Loratadine 10 MG Tablet 1 tablet Orally Once a day Wixela Inhub 100-50 MCG/ACT Aerosol Powder Breath Activated 1 puff Inhalation Twice a day Medication List reviewed and reconciled with the patientNot-Taking Albuterol Sulfate HFA 108 (90 Base) MCG/ACT Aerosol Solution 1 puff as needed Inhalation every 4 hrs Not-Taking BuPROPion HCl ER (XL) 300 MG Tablet Extended Release 24 Hour Oral Not-Taking Fluticasone Propionate 50 MCG/ACT Suspension instill 1 spray into each nostril once daily Nasal Not-Taking Loratadine 10 MG Tablet 1 tablet Orally Once a day Not-Taking Wixela Inhub 100-50 MCG/ACT Aerosol Powder Breath Activated 1 puff Inhalation Twice a day Medication List reviewed and reconciled with the patient * Allergies:?Codeine: chest pa inno[Allergies Verified] Objective: * Vitals:?Ht: 66 in, Ht-cm: 16 7.64 cm, Wt: Not Taken - Declined by Patient, BP: Not Taken - Declined by Patient, Temp:97.8F, HR:92, Oxygen sat %:97. * Examination: ???NEUROSURGERY: ???Awake, Alert, and orientated x3?Pupils equal round and reactive to light bilaterally?Face symmetric?Cranial nerves grossly intact?RUE: Deltoid: 5/5; Biceps: 5/5; Triceps: 5/5; Wrist extension: 5/5; Hand intrinsics: 5/5?LUE: Deltoid: 5/5; Biceps: 5/5; Triceps: 5/5; Wrist extension: 5/5; Hand intrinsics: 5/5RLE: Psoas: 5/5; Quad: 5/5; TA: 5/5; Gastroc: 5/5LLE: Psoas: 5/5; Quad: 5/5; TA: 5/5; Gastroc: 5/5Sensation to light touch intact throughout the upper and lower extremities?R Reflexes: Biceps; 1+; Triceps: 1+; Patella: 1+; Achilles:1+L Reflexes: Biceps; 1+; Triceps: 1+; Patella: 1+; Achilles: 1+Oliver's: Negative bilaterally?Clonus: Negative bilaterally. Assessment: * Assessment: 1.?Lumbar radicular pain - M 54.16 (Primary)? This is a 38-year-old female who is [...] by pain management in the coming weeks. Plan: * Treatment: ?Imaging: XR- LUMBAR SPINE BENDING ONLY (25003) (PRHP-SPLUMBBO)* Please do standing lateral f lexion and extension views Notes: Will get standing lateral flexion-extension views of the lumbar spine to ensure no dynamic instability that could be contributing to the formation of the synovial cyst as there is increased facet signal at that 3 4 level Given the variability of her lower extremity symptoms will get a EMG/NCV of the bilateral lower extremities to evaluate for a lumbar radiculopathy versus peripheral neuropathy as the source for her lower extremity pain Agree with referral to pain management and advised to keep appointment with Dr. Chopra Will follow-up in 4 weeks to review the results the EMG/NCV and the x-rays and discuss further treatment options??2.?Others? Notes: I spent 45 min involved in patient care with greater than 50% of the time involving direct patient care and counseling. ?? * Procedure Codes:? * Follow Up:?4 Weeks (Reason: after emg/ncv) * Care Plan Details* Images * Examination/Vicco * S CLEANER Sign off status: Completed true * Provider:?VIOLETA WHITLOCK MD Date:?05/17/20 23 Generated for Audreyi fabrice/Sarmad/Blaze on:?08/02/2024 04:27 PM EST History and Physical Notes * HPI (History of Present Illness) Category Sub-Category Detail Notes Category Not es Patient History This is a 38 -year-old female who is presenting for evaluation for [...] a left-sided L4 radiculopathy at this time. Examination Category Sub-Category Detail Notes Category Not es NEUROSURGERY Awake, Alert, a nd orientated x3 Pupils equal round and reactive to light bilaterally Face symmetric Cranial nerves grossly intact RUE: Deltoid: 5/5; Biceps: 5/5; Triceps: 5/5; Wrist extension: 5/5; Hand intrinsics: 5/5 LUE: Deltoid: 5/5; Biceps: 5/5; Triceps: 5/5; Wrist extension: 5/5; Hand intrinsics: 5/5RLE: Psoas: 5/5; Quad: 5/5; TA: 5/5; Gastroc: 5/5LLE: Psoas: 5/5; Quad: 5/5; TA: 5/5; Gastroc: 5/5Sensation to light touch intact throughout the upper and lower extremities R Reflexes: Biceps; 1+; Triceps: 1+; Patella: 1+; Achilles:1+L Reflexes: Biceps; 1+; Triceps: 1+; Patella: 1+; Achilles: 1+Oliver's: Negative bilaterally Clonus: Negative bilaterally
--- OUTSIDE RECORDS SUMMARY | 2024-08-02 16:27 | XMS_ITS | Encounter Summary ---
Author Organization [facility] Address [phone] [facility] [place] [address] Care Team Providers Care Centerless Grinder Operator Name Role Phone Vicenta Hutchinson DRAWER WAXER Primary Care Provider + [phone] Vicenta Hutchinson DRAWER WAXER Primary Care Provider [phone] Encounter Details Date Type Department Care Team (Late st Contact Info) Description 09/08/2020 Procedure Pass [facility] Change Over Center [address] [place] [address] Social History Tobacco Use Types Packs/Day Years [...] Info) Description 09/16/2024 8:[address] [facility] Crohns and Colitis [address] [place] [address] Samuel Bower MD, MPH [address] [place] [address] [email or web address] Scheduled Procedures Name Priority Associated Diagnoses Date/Ti il COLONOSCOPY Crohn's disease of small and large intestines with complication ESOPHAGOGASTRODUODENOSCOPY Crohn's disease of small and large intestines with complication documented as of this encounter Visit Diagnoses Not on filedocumented in this encounter Care Teams Centerless Grinder Operator Relationship Specialty Start Date End Date Vicenta Hutchinson NP [address] [place] [address] [email or web address] PCP - General Unknown Provider Specialty 02/08/18 08/22/21 Vicenta Hutchinson NP [address] [place] [address] [email or web address] PCP - General Unknown Provider Specialty 08/23/21 documented as of this encounter Additional Source Comments The information contained in this document represents components of the legal health record. It is not the complete legal health record.[facility]
--- OUTSIDE RECORDS SUMMARY | 2024-08-02 16:27 | XMS_ITS | Encounter Summary ---
Author Organization [facility] Address [address] [place] [address] Care Team Providers Care Personnel Scheduler Name Role Phone Unavailable Primary Care Provider Unavailabl e Encounter Details Date Type Department Care Team (Late st Contact Info) Description 12/22/2023 Lab Requisition [facility] [address] [place] [address] Samuel Bower MBBS [address] [address] Social History Tobacco Use Types Packs/Day Years Used Date Smoking Tobacco: Never Assessed Comments Unknown Sex and Gender Information Value Date Recorded Sex Assigned at Not on file Legal Sex Female 5:57 PM EDT Gender Identity Not on file Sexual Orientation Not on file documented as of this encounter Plan of Treatment Not on file documented as of this encounter Procedures Procedure Name Priority Date/Time Associated Diagnosis Comments C-REACTIVE PROTEIN Routine 12/22/2023 4: 50 PM EDT Crohn's disease, unspecified, without complications (CMS/HHS) CBC + AUTO DIFF Routine 12/22/2023 4:50 PM EDT Crohn's disease, unspecified, without complications (CMS/HHS) MANUAL DIFFERENTIAL AND/OR MORPHOLOGY Routine 12/22/2023 4:50 PM EDT Crohn's disease, unspecified, without complications (CMS/HHS) CBC + DIFFERENTIAL Routine 12/22/2023 4: 50 PM EDT Crohn's disease, unspecified, without complications (CMS/HHS) HEPATIC FUNCTION PANEL Routine 12/22/2023 4:50 PM EDT Crohn's disease, unspecified, without complications (CMS/HHS) BASIC METABOLIC PANEL Routine 12/22/2023 4:50 PM EDT Crohn's disease, unspecified, without complications ([facility]) documented in this encounter Results * (ABNORMAL) MANUAL DIFFERENTIAL AND/OR MORPHOLOGY (12/22/2023 4:50 PM EDT) Pathologist [facility] Percent 57 37 - 75 % 12/26/2023 8:19 AM EDT [facility] Lymphocytes Percent 32 15 - 50 % 12/26/2023 8:19 AM EDT [facility] Monocytes Percent 4(L) 5 - 13 % 8:19 AM EDT [facility] Eosinophils Percent 3 0 - 8 % 12/25 8:19 AM EDT [facility] Basophils Percent 1 0 - 1 % 8:19 AM EDT [facility] Myelocytes Percent 1(H) <1 % 2023 8:19 AM EDT [facility] Reactive Lymphocytes Percent 2(H) <1 % 12/26/2023 8:19 AM EDT [facility] Neutrophils Absolute 8.66 1.64 - 8.80 thou/uL 12/26/2023 8:19 AM EDT [facility] Lymphocytes Absolute 4.86(H) 1.12 - 3.82 thou/uL 12/26/2023 8:19 AM EDT [facility] Monocytes Absolute 0.61 0.27 - 0.97 thou/uL 12/26/2023 8:19 AM EDT [facility] Eosinophils Absolute 0.46 0.00 - 0.54 thou/uL 12/26/2023 8:19 AM EDT [facility] Basophils Absolute 0.15(H) 0.00 - 0.08 thou/uL 12/26/2023 8:19 AM EDT [facility] Myelocytes Absolute 0.15(H) <=0.01 thou/uL 12/26/2023 8:19 AM EDT [facility] Reactive Lymphocytes Absolute 0.30(H) <=0.01 thou/uL 12/26/2023 8:19 AM EDT [facility] Erythrocyte Morphology See below: 12/26/2023 8:19 AM EDT [facility] Leukocytes Morphology Smudge cells present. 12/26/2023 8:19 AM EDT [facility] Hypochromia 1+ 12/26/2023 8:19 AM EDT [facility] Microcytes 1+ 12/26/2023 8:19 AM EDT [facility] Polychromasia 1+ 12/26/2023 8:19 AM EDT [facility] Blood VENOUS STRUCTURE / Unknown 12/22/2023 4:50 PM EDT 12/22/2023 6:17 PM EDT Narrative [facility] - 12/26/2023 8:19 AM EDT Smear reviewed by designated technologist. Samuel Rayo HEMATOL OGY ORDERABLES Final Result [address] [place] [address] * (ABNORMAL) CBC + AUTO DIFF (12/22/2023 4:50 PM EDT) Leukocytes 15.2(H) 3.7 - 12.7 thou/uL 12/26/2023 8:19 AM EDT [facility] Erythrocytes 4.51 3.69 - 5.28 mil/uL 12/26/2023 8:19 AM EDT [facility] Hemoglobin 10.5 10.5 - 14.8 g/dL 12/26/2023 8:19 AM EDT [facility] Hematocrit 34.1 31.8 - 44.3 % 12/26/2023 8:19 AM EDT [facility] Mean Corpuscular Volume 75.6 73.3 - 96.9 fL 12/26/2023 8:19 AM EDT [facility] Mean Corpuscular Hemoglobin 23.3 21.9 - 32.6 pg 12/26/2023 8:19 AM EDT [facility] Mean Corpuscular Hemoglobin Conc 30.8 29.7 - 34.9 g/dL 12/26/2023 8:19 AM EDT [facility] Platelet Count 477(H) 158 - 429 thou/uL 12/26/2023 8:19 AM EDT [facility] Mean Platelet Volume 10.0 9.1 - 12.9 fL 12/26/2023 8:19 AM EDT [facility] Erythrocyte Distribution Width SD 44.6 37.0 - 48.0 fL 12/26/2023 8:19 AM EDT [facility] Erythrocyte Distribution Width CV 16.3 11.5 - 17.6 % 12/26/2023 8:19 AM EDT [facility] Blood VENOUS STRUCTURE / Unknown 12/22/2023 4:50 PM EDT 12/22/2023 6:17 PM EDT Samuel Rayo HEMATOL OGY ORDERABLES Final Result [facility] [address] [place] [address] * HEPATIC FUNCTION PANEL (12/22/2023 4:50 PM EDT) Albumin 3.9 3.5 - 5.1 g/dL 12/23/2023 9:08 AM EDT [facility] Bilirubin 0.2 <=1.2 mg/dL 12/23/2023 9:08 AM EDT [facility] Bilirubin Direct <0.2 0.0 - 0.3 mg/dL 12/23/2023 9:08 AM EDT [facility] Alkaline Phosphatase 87 35 - 104 U/L 12/23/2023 9:08 AM EDT [facility] AST 15 8 - 43 U/L 12/23/2023 9:08 AM EDT [facility] ALT 15 7 - 45 U/L 12/23/2023 9:08 AM EDT [facility] Protein 6.8 6.4 - 8.3 g/dL 12/23/2023 9:08 AM EDT [facility] Blood VENOUS STRUCTURE / Unknown 12/22/2023 4:50 PM EDT 12/22/2023 6:17 PM EDT Samuel Rayo MAMMOGRAPHY TECH RY ORDERABLES Final Result [facility] [address] [place] [address] * (ABNORMAL) C-REACTIVE PROTEIN (12/22/2023 4:50 PM EDT) Pathologist [facility] C-Reactive Protein mg/L 7.9(H) 0.0 - 5.0 mg/L 12/23/2023 9:08 AM EDT [facility] Blood VENOUS STRUCTURE / Unknown 12/22/2023 4:50 PM EDT 12/22/2023 6:17 PM EDT Samuel GoldsteinBS MAMMOGRAPHY TECH RY ORDERABLES Final Result [facility] [address] [place] [address] * BASIC METABOLIC PANEL (12/22/2023 4:50 PM EDT) Sodium 135 135 - 145 mEq/L 12/23/2023 9:08 AM EDT [facility] Potassium 4.5 3.5 - 5.1 mEq/L 12/23/2023 9:08 AM EDT [facility] Chloride 100 96 - 108 mEq/L 12/23/2023 9:08 AM EDT [facility] Carbon Dioxide 24 21 - 30 mEq/L 12/23/2023 9:08 AM EDT [facility] Blood Urea Nitrogen 11 6 - 20 mg/dL 12/23/2023 9:08 AM EDT [facility] Creatinine 0.69 0.59 - 1.04 mg/dL 12/23/2023 9:08 AM EDT [facility] Calcium 8.9 8.6 - 10.0 mg/dL 12/23/2023 9:08 AM EDT [facility] Glucose 86 70 - 99 mg/dL 12/23/2023 9:08 AM EDT [facility] Anion Gap 11 7 - 16 mEq/L 12/23/2023 9:08 AM EDT [facility] BUN Creatinine Ratio 15.9 12/23/2023 9:08 AM EDT [facility] EGFR (MDRD) >60 >60.0 mL/min/1.7 3m(2) 12/23/2023 9:08 AM EDT [facility] Comment:This test has multip le limitations. Please see [email or web address]. Blood VENOUS STRUCTURE / Unknown 12/22/2023 4:50 PM EDT 12/22/2023 6:17 PM EDT us Samuel Rayo MAMMOGRAPHY TECH RY ORDERABLES Final Result [facility] [address] [place], [place] [id number] documented in this encounter Visit Diagnoses Diagnosis Crohn's disease, unspecified, without complications (CMS/HHS) documented in this encounter
--- OUTSIDE RECORDS SUMMARY | 2024-08-02 16:27 | XMS_ITS | Encounter Summary ---
Author Organization [facility] Address [phone] [facility] [place] [address] [place] [address] Care Team Providers Care Auger Machine Offbearer Name Role Phone Vicenta Hutchinson MATERIAL DAMAGE APPRAISER Primary Care Provider [phone] Reason for Visit * Reason Onset Date Comments spine team referral 05/24/2024 Sent to spin e team for review Encounter Details Date Type Department Care Team (Late st Contact Info) Description 05/24/2024 Telephone [facility] Social Pulse Ortho & Sports Med 7 [facility] [address] [address] Salomón Kim MD [address] [place] [address] [email or web address] spine team referral (Sent to spine team for review/) Social History Tobacco Use Types Packs/Day Years [...] on file documented as of this encounter Progress Notes * Shola Cuevas PA-C - 05/24/2024 3:12 PM EST Agreed with neurosurgery. I have reviewed her case and surgical intervention is not recommended dueto high BMI which increases complication risk including infection. Happy to see her in the office however we would not consider surgery. JDD, your thoughts? * Terri Machado - 05/24/2024 11:40 AM EST Rec'vd referral for Radicular low back pain M71.38 (ICD-10-CM) - Synovial cyst of lumbar spine Referral notes: severe LBP and radicular s&s at L side >R side, unable to do anything due topain, even getting into office exacerbates pain Imaging in chart Please review and advise for scheduling documented in this encounter Plan of Treatment Upcoming Encounters Date Type Department Care Team (Late st Contact Info) Description 09/16/2024 8:40 AM EDT Telemedicine [facility] Crohns and Colitis [address] [place] [id number] Samuel Bower MD, MPH [address] [place] [address] [email or web address] Scheduled Procedures Name Priority Associated Diagnoses Date/Ti ms COLONOSCOPY Crohn's disease of small and large intestines with complication ESOPHAGOGASTRODUODENOSCOPY Crohn's disease of small and large intestines with complication documented as of this encounter Visit Diagnoses Not on filedocumented in this encounter Additional Health Concerns Assessment Noted Time PHQ-2 Depression Total Score: 0 09/08/19 23 2:01 PM EDT documented as of this encounter Care Teams Auger Machine Offbearer Relationship Specialty Start Date End Date Vicenta Hutchinson NP [address] [place] [address] [email or web address] PCP - General Unknown Provider Specialty 08/23/21 documented as of this encounter Additional Source Comments The information contained in this document represents components of the legal health record. It is not the complete legal health record.[facility]
--- OUTSIDE RECORDS SUMMARY | 2024-08-02 16:27 | XMS_ITS | Encounter Summary ---
Author Organization [facility] Address [phone] [facility] [place] [address] Care Team Providers Care Expander Machine Operator Name Role Phone Vicenta Hutchinson FLOORING PROFESSIONAL Primary Care Provider [phone] Vicenta Hutchinson FLOORING PROFESSIONAL Primary Care Provider [phone] Reason for Referral * Consultation (Within 1 month) - Closed Specialty Diagnoses / Procedures Referred By Elizabeth kohler Referred To Contact Gastroenterology Diagnoses Crohn's disease with abscess, unspecified gastrointestinal tract location Vicenta Hutchinson NP [address] [place] [address] Email: [email or web address] Saniya Frias MD, MS [address] [address] Email: [email or web address] Referral ID Status Reason Start Date Expiration Date Visits Re quested Visits Authorized [id number] Closed 05/22/2019 05/21/2020 1 1 Encounter Details Date Type Department Care Team (Latest Contact Info) Description 05/22/2019 Transcribe Orders [facility] [address] [place] [address] Vicenta Hutchinson NP [address] [place] [address] [email or web address] Crohn's disease with abscess, unspecified gastrointestinal tract location (Primary Dx) Social History Tobacco Use Types [...] Info) Description 09/16/2024 8:40 AM EDT Telemedicine [facility] Crohns and Colitis [address] [place] [address] Samuel Bower MD, MPH [address] [place] [address] [email or web address] Scheduled Procedures Name Priority Associated Diagnoses Date/Ti nv COLONOSCOPY Crohn's disease of small and large intestines with complication ESOPHAGOGASTRODUODENOSCOPY Crohn's disease of small and large intestines with complication Scheduled Referrals Name Type Priority Associated Diagnoses Orde r Schedule Ambulatory referral to [facility] (Consult Requests Only) Outpatient Referral Routine Crohn's disease with abscess, unspecified gastrointestinal tract location Ordered: 05/22/2019 documented as of this encounter Visit Diagnoses Diagnosis Crohn's disease with abscess, unspecified gastrointestinal tract location- Primary documented in this encounter Care Teams Expander Machine Operator Relationship Specialty Start Date End Date Vicenta Hutchinson NP [address] [place] [address] [email or web address] cathie PCP - General Unknown Provider Specialty 02/08/18 08/22/21 Vicenta Hutchinson NP [address] [place] [address] [email or web address] cathie PCP - General Unknown Provider Specialty 08/23/21 documented as of this encounter Additional Source Comments The information contained in this document represents components of the legal health record. It is not the complete legal health record.[facility]
--- OUTSIDE RECORDS SUMMARY | 2024-08-02 16:28 | XMS_ITS | Encounter Summary ---
Author Organization [facility] Address [phone] [facility]ly [facility], [facility] [place] [address] Care Team Providers Care Utility Plant Operative Name Role Phone Vicenta Hutchinson LOGISTICS MANAGEMENT SPECIALIST Primary Care Provider + [phone] Vicenta Hutchinson LOGISTICS MANAGEMENT SPECIALIST Primary Care Provider [phone] Encounter Details Date Type Department Care Team (Late st Contact Info) Description 07/19/[address] [address] Marichuy Rubio [address] [place] [address]. 5[address] [place] [address] [email or web address] Social History Tobacco Use Types Packs/Day Years [...] Info) Description 09/16/2024 8:40 AM EDT Telemedicine [facility] Crohns and Colitis [address] [place] [address] Samuel Bower MD, MPH [address] [place] [address] [email or web address] Scheduled Procedures Name Priority Associated Diagnoses Date/Ti me COLONOSCOPY Crohn's disease of small and large intestines with complication ESOPHAGOGASTRODUODENOSCOPY Crohn's disease of small and large intestines with complication documented as of this encounter Visit Diagnoses Not on filedocumented in this encounter Care Teams Utility Plant Operative Relationship Specialty Start Date End Date Vicenta Hutchinson NP [address] [place] [address] [email or web address] PCP - General Unknown Provider Specialty 02/08/18 08/22/21 Vicenta Hutchinson NP [address] [place] [address] [email or web address] PCP - General Unknown Provider Specialty 08/23/21 documented as of this encounter Additional Source Comments The information contained in this document represents components of the legal health record. It is not the complete legal health record.[facility]
--- OUTSIDE RECORDS SUMMARY | 2024-08-02 16:28 | XMS_ITS | Encounter Summary ---
Author Organization [facility] Address [phone] [facility] [place] [address] Care Team Providers Care Licensed Therapist Name Role Phone Vicenta Hutchinson AIRCRAFT STRUCTURAL REPAIR MECHANIC Primary Care Provider [phone] Vicenta Hutchinson AIRCRAFT STRUCTURAL REPAIR MECHANIC Primary Care Provider [phone] Reason for Referral * Consultation (Within 1 month) - Closed Specialty Diagnoses / Procedures Referred By Elizabeth kohler Referred To Contact Gastroenterology Diagnoses Crohn's disease with complication, unspecified gastrointestinal tract location System, Provider Not In, [facility] [address] [address] Dewayne Miller MBBS, MPH [address] [place] [phone] Email: [email or web address] Referral ID Status Reason Start Date Expiration Date Visits Re quested Visits Authorized [id number] Closed 02/09/2018 02/09/2019 1 1 Encounter Details Date Type Department Care Team (Latest Contact Info) Description 02/09/2018 Transcribe Orders [facility] [address] [place] [address] [id number] Vicenta Hutchinson, DONG [address] [place] [address] [email or web address] Crohn's disease with complication, unspecified gastrointestinal tract location (Primary Dx) Social History Tobacco Use Types Packs/Day Years Used Date Smoking Tobacco: Never Assessed Sex and Gender Information Value Date Recorded Sex Assigned at Not on file Gender Identity Not on file Sexual Orientation Not on file documented as of this encounter Plan of Treatment Upcoming Encounters Date Type Department Care Team (Late st Contact Info) Description 09/16/2024 8:40 AM EDT Telemedicine [facility] Crohns and Colitis [address] [place] [address] Samuel Bower MD, MPH [address] [place] [address] [email or web address] Scheduled Procedures Name Priority Associated Diagnoses Date/Ti ms COLONOSCOPY Crohn's disease of small and large intestines with complication ESOPHAGOGASTRODUODENOSCOPY Crohn's disease of small and large intestines with complication Scheduled Referrals Name Type Priority Associated Diagnoses Orde r Schedule Ambulatory referral to [facility] Gastroenterology (Consult Requests Only) Outpatient Referral Routine Crohn's disease with complication, unspecified gastrointestinal tract location Ordered: 02/09/2018 documented as of this encounter Visit Diagnoses Diagnosis Crohn's disease with complication, unspecified gastrointestinal tract location- Primary documented in this encounter Care Teams Licensed Therapist Relationship Specialty Start Date End Date Vicenta Hutchinson NP [address] [place] [address] [email or web address] PCP - General Unknown Provider Specialty 02/08/18 08/22/21 Vicenta Hutchinson NP [address] [place] [address] [email or web address] PCP - General Unknown Provider Specialty 08/23/21 documented as of this encounter Additional Source Comments The information contained in this document represents components of the legal health record. It is not the complete legal health record.[facility]
--- OUTSIDE RECORDS SUMMARY | 2024-08-02 16:28 | XMS_ITS ---
[facility] Address [address] [place] [address] Care Team Providers Care Patient Centered Care Specialist Name Role Phone Vicenta Hutchinson Primary Care Provider REASON FOR VISIT Refills NEEDS APPT SCHED Medications Medication SIG (Take, Route, Fr equency, Duration) Notes Start Date End Date Status Gabapentin 600 MG 2 tablet Orally thre e times daily for 30 days Active traZODone HCl 50 MG 1 to 3 tablets Orall y Once a day at bedtime as needed for 30 days Active Encounters Encounter Location Date [facility] [address] [place] [address] 07/22/2024 Vicenta Jasper Radicular low back pain M54.10 and Anxiety with depression F41.8 Assessments Encounter Date Diagnosis (ICD Code) Assessment Notes Treatment Notes Treatment Clinical Notes Section Notes 07/22/2024 Radicular low back pain (ICD-10 - M54.10) 07/22/2024 Anxiety with depression (ICD-10 - F41.8) Plan Of Treatment Medication Medication Name Sig Start Date Stop Date Notes Gabapentin 600 MG 2 tablet Orally thre e times daily for 30 days traZODone HCl 50 MG 1 to 3 tablets Orall y Once a day at bedtime as needed for 30 days Progress Notes * Oleg SCHWABOB:1985 ( 39 yo F)Acc No.[id number]:07/22/2024 Patient:?Daphne SCHWAB :1985???Age:39 Y???Sex:Female Address:[address] [place] [address] * Refills? Refill Gabapentin Tablet, 600 MG, Orally, 180, 2 tablet, three times daily, 30 days, Refills=1 Refill traZODone HCl Tablet, 50 MG, Orally, 90, 1 to 3 tablets, Once a day at bedtime as needed, 30 days, Refills=1 * true * Date:? Generated for Jacques avina/Sarmad/Alfieitting on:?08/02/2024 04:27 PM EST
--- OUTSIDE RECORDS SUMMARY | 2024-08-02 16:28 | XMS_ITS | Encounter Summary ---
Author Organization [facility] Address [phone] [facility] [place] [place] [address] Care Team Providers Care Commercial Drone Pilot Name Role Phone Vicenta Hutchinson TRANSPORTATION DIRECTOR Primary Care Provider + [phone] Vicenta Hutchinson TRANSPORTATION DIRECTOR Primary Care Provider [phone] Encounter Details Date Type Department Care Team (Late st Contact Info) Description 12/23/2020 Procedure Pass [facility] [address] [place] [address] Social History Tobacco Use Types Packs/Day Years [...] Info) Description 09/16/2024 8:40 AM EDT Telemedicine [facility] Crohns and Colitis [address] [place] [address] Samuel Bower MD, MPH [address] [place] [id number] [email or web address] Scheduled Procedures Name Priority Associated Diagnoses Date/Ti il COLONOSCOPY Crohn's disease of small and large intestines with complication ESOPHAGOGASTRODUODENOSCOPY Crohn's disease of small and large intestines with complication documented as of this encounter Visit Diagnoses Not on filedocumented in this encounter Care Teams Commercial Drone Pilot Relationship Specialty Start Date End Date Vicenta Hutchinson NP 1 [place] [address] [email or web address] cathie PCP - General Unknown Provider Specialty 02/08/18 08/22/21 Vicenta Hutchinson NP [address] [place] [address] [email or web address] PCP - General Unknown Provider Specialty 08/23/21 documented as of this encounter Additional Source Comments The information contained in this document represents components of the legal health record. It is not the complete legal health record.[facility]
--- OUTSIDE RECORDS SUMMARY | 2024-08-02 16:28 | XMS_ITS | Encounter Summary ---
Author Organization [facility] Address [phone] [facility] [place] [address] Care Team Providers Care Diet Technician Registered Name Role Phone Vicenta Hutchinson OVEN HEATER HELPER Primary Care Provider [phone] Vicenta Hutchinson OVEN HEATER HELPER Primary Care Provider [phone] Encounter Details Date Type Department Care Team (Late st Contact Info) Description 05/24/2018 Procedure Pass [facility] Endoscopy Department [address] [place] [address] Social History Tobacco Use Types Packs/Day Years [...] Info) Description 09/16/2024 8:40 AM EDT Telemedicine [facility] Crohns and Colitis [address] [place] [address] Samuel Bower MD, MPH [address] [place] [address] [email or web address] Scheduled Procedures Name Priority Associated Diagnoses Date/Ti ia COLONOSCOPY Crohn's disease of small and large intestines with complication ESOPHAGOGASTRODUODENOSCOPY Crohn's disease of small and large intestines with complication documented as of this encounter Visit Diagnoses Not on filedocumented in this encounter Care Teams Diet Technician Registered Relationship Specialty Start Date End Date Vicenta Hutchinson NP [address] [place] [address] [email or web address] cathie PCP - General Unknown Provider Specialty 02/08/18 08/22/21 Vicenta Hutchinson NP [address] [place] [address] [email or web address] cathie PCP - General Unknown Provider Specialty 08/23/21 documented as of this encounter Additional Source Comments The information contained in this document represents components of the legal health record. It is not the complete legal health record.[facility]
== END 2024-08-02 15:30 | disposition home or self-care (01) ==
LOC: HO.HNS 14:15
PROVIDERS: Visit Provider Neurological Surgery
DX: M71.38 Other bursal cyst, other site (principal); M48.062 Spinal stenosis, lumbar region with neurogenic claudication; M43.17 Spondylolisthesis, lumbosacral region
CPT/HCPCS: 99204

== ENCOUNTER → 2024-08-02 14:15 | Outpatient (BNVA) | payer SELFPAY | PROVIDERS: Visit Provider Neurological Surgery | DX: M71.38 Other bursal cyst, other site (principal); M48.062 Spinal stenosis, lumbar region with neurogenic claudication; M43.17 Spondylolisthesis, lumbosacral region | CPT/HCPCS: 99202 ==